=== PATIENT | female | born 1995 | race Caucasian/White ===

== ENCOUNTER → 2020-03-16 | Outpatient (CLI) | payer OTHER | END | disposition home or self-care (01) | LOC: PRENATAL 14:35 | PROVIDERS: ATTEND Obstetrics & Gynecology Maternal & Fetal Medicine | DX: O35.0XX1 Maternal care for (suspected) central nervous system malformation in fetus, fetus 1 (principal); O35.3XX1 Maternal care for (suspected) damage to fetus from viral disease in mother, fetus 1; O98.512 Other viral diseases complicating pregnancy, second trimester; Z36.89 Encounter for other specified antenatal screening; Z3A.20 20 weeks gestation of pregnancy ==

== ENCOUNTER 2021-11-09 14:09 | Emergency (ER) | payer OTHER ==
[~2021-11-09] VITALS: Ht 160 cm; Wt 83.9 kg
[2021-11-09] MEDS ORDERED: KETO10TA2 PO (16:48)
== END 2021-11-09 16:56 ==
LOC: ER 14:09
DX: T15.01XA Foreign body in cornea, right eye, initial encounter (principal); X58.XXXA Exposure to other specified factors, initial encounter; Y93.89 Activity, other specified; Y92.89 Other specified places as the place of occurrence of the external cause; Y99.8 Other external cause status

== ENCOUNTER 2021-11-13 11:10 | Emergency (ER) | payer OTHER ==
[~2021-11-13] VITALS: Ht 160 cm; Wt 97.1 kg
[~2021-11-13 11:10] MED LIST: KETO10TA2 PO
== END 2021-11-13 12:05 | disposition home or self-care (01) ==
LOC: ER 11:10
DX: H57.11 Ocular pain, right eye (principal)

== ENCOUNTER 2022-01-17 09:56 | Emergency (ER) | payer OTHER ==
[~2022-01-17] VITALS: Ht 76.2 cm; Wt 8.6 kg
== END 2022-01-17 11:36 | disposition home or self-care (01) ==
LOC: EMR PED 09:56
DX: K59.00 Constipation, unspecified (principal)